=== PATIENT | female | born 1995 | race American Indian/Alaskan Native ===

== ENCOUNTER 2017-09-08 14:45 | Emergency (ER) | payer SELFPAY ==
[2017-09-08 15:28] LABS: Basophils % (Auto) 0.6 % (0.0-1.8); Eosinophils % (Auto) 0.3 % (0.0-4.3); Hemoglobin 14.9 gm/dl (10.1-14.3); Lymphocytes # (Auto) 2.4 K/mm3 (1.2-5.4); Lymphocytes % (Auto) 37.7 % (13.4-35.0); Mean Corpuscular HGB Conc 34 % (30-34); Mean Corpuscular Hemoglobin 30 pg (28-32); Mean Corpuscular Volume 89 fl (79-97); Monocytes # (Auto) 0.5 K/mm3 (0.0-0.8); Monocytes % (Auto) 8.3 % (0.0-7.3); Platelet Count 262 K/mm3 (140-440); Red Blood Count 4.96 M/mm3 (3.65-5.03); Red Cell Distribution Width 14.6 % (13.2-15.2)
[2017-09-08 15:30] LABS: BUN/Creatinine Ratio 11; Blood Urea Nitrogen 8 mg/dL (7-17); Calcium 8.7 mg/dL (8.4-10.2); Hemolysis Index 8
--- NOTE | 2017-09-08 16:58 | Emergency Department Report ---
ED Psych HPI - General Chief Complaint: Psych Stated Complaint: SUICIDAL THOUGHTS Time Seen by Provider: 09/08/17 16:17 Source: patient Mode of arrival: Ambulatory - History of Present Illness Initial Comments: Ms Longoria is a 22 year-old woman without PMH who presents after attempt at SI. Per patient, she has been depressed recently because she "has a lot going on." Would not elaborate further. Denies that she is being hurt or feels like she is in danger. Made a post on [employer] about possibly harming herself. She then took a phone user support analyst supervisor and wrapped it around her enck with her hands. Then she plugged it in and tried to hang herself. She then got into bed. Police came to the door and brought her here. No ingestion. no drugs. No alcohol. Upset that she is being forced to stay here. Reports previous attempt at SI. No cough, no cold, no fever, no CP, no dyspnea. no back pain. Normal PO. MD Complaint: suicidal ideation Associated Psychiatric Symptoms: depression, suicidal ideation If Self Harm: admits thoughts of, has plan, has acted on plan - Related Data Allergies Allergy/AdvReac Type Severity Reaction Status Date / Time No Known Allergies Allergy Unverified 09/08/17 14:56 ED Review of Systems ROS: Stated complaint: SUICIDAL THOUGHTS Other details as noted in HPI Comment: All other systems reviewed and negative ED Past Medical Hx - Past Medical History Previous Medical History?: No - Surgical History Past Surgical History?: No - Social History Smoking Status: Current Some Day Smoker Substance Use Type: Alcohol, Marijuana ED Physical Exam - General Limitations: No Limitations General appearance: alert, in no apparent distress - Head Head exam: Present: atraumatic, normocephalic - Eye Eye exam: Present: normal appearance. Absent: scleral icterus - ENT ENT exam: Present: normal exam, normal orophraynx, mucous membranes moist - Neck Neck exam: Present: normal inspection, full ROM, other (no swelling, no rash, no bruising, no abrasion, no bruit, no ttp, no stridor). Absent: tenderness, meningismus, lymphadenopathy - Respiratory Respiratory exam: Present: normal lung sounds bilaterally. Absent: respiratory distress, wheezes, rales, rhonchi - Cardiovascular Cardiovascular Exam: Present: regular rate, normal rhythm. Absent: systolic murmur, diastolic murmur, rubs, gallop - GI/Abdominal GI/Abdominal exam: Present: soft. Absent: distended, tenderness - Extremities Exam Extremities exam: Present: normal inspection - Back Exam Back exam: Present: normal inspection. Absent: tenderness - Neurological Exam Neurological exam: Present: alert, oriented X3 - Psychiatric Psychiatric exam: Present: normal affect, normal mood - Skin Skin exam: Present: warm, dry, intact, normal color. Absent: rash ED Course Vital Signs 09/08/17 09/08/17 15:10 16:53 Temperature 98.5 F Pulse Rate 59 L Respiratory 18 18 Rate Blood Pressure 104/55 [Left] O2 Sat by Pulse 99 98 Oximetry ED Medical Decision Making - Lab Data Result diagrams: 09/08/17 15:04 09/08/17 15:04 Lab Results 09/08/17 09/08/17 09/08/17 Range/Units 15:04 15:04 15:04 WBC (4.5-11.0) K/mm3 RBC (3.65-5.03) M/mm3 Hgb (10.1-14.3) gm/dl Hct (30.3-42.9) % MCV (79-97) fl MCH (28-32) pg MCHC (30-34) % RDW (13.2-15.2) % Plt Count (140-440) K/mm3 Lymph % (Auto) (13.4-35.0) % [place] % (Auto) (0.0-7.3) % Eos % (Auto) (0.0-4.3) % Baso % (Auto) (0.0-1.8) % Lymph # (1.2-5.4) K/mm3 [place] # (0.0-0.8) K/mm3 Eos # (0.0-0.4) K/mm3 Baso # (0.0-0.1) K/mm3 Seg Neutrophils % (40.0-70.0) % Seg Neutrophils # (1.8-7.7) K/mm3 Sodium 138 (137-145) mmol/L Potassium 4.1 (3.6-5.0) mmol/L Chloride 102.2 (98-107) mmol/L Carbon Dioxide 23 (22-30) mmol/L Anion Gap 17 mmol/L BUN 8 (7-17) mg/dL Creatinine 0.7 (0.7-1.2) mg/dL Estimated GFR > 60 ml/min BUN/Creatinine Ratio 11 % Glucose 82 (65-100) mg/dL Calcium 8.7 (8.4-10.2) mg/dL Salicylates < 0.3 L (2.8-20.0) mg/dL Acetaminophen < 5.0 L (10.0-30.0) ug/mL Plasma/Serum Alcohol (0-0.07) % 09/08/17 09/08/17 Range/Units 15:04 15:04 WBC 6.4 (4.5-11.0) K/mm3 RBC 4.96 (3.65-5.03) M/mm3 Hgb 14.9 H (10.1-14.3) gm/dl Hct 44.0 H (30.3-42.9) % MCV 89 (79-97) fl MCH 30 (28-32) pg MCHC 34 (30-34) % RDW 14.6 (13.2-15.2) % Plt Count 262 (140-440) K/mm3 Lymph % (Auto) 37.7 H (13.4-35.0) % [place] % (Auto) 8.3 H (0.0-7.3) % Eos % (Auto) 0.3 (0.0-4.3) % Baso % (Auto) 0.6 (0.0-1.8) % Lymph # 2.4 (1.2-5.4) K/mm3 [place] # 0.5 (0.0-0.8) K/mm3 Eos # 0.0 (0.0-0.4) K/mm3 Baso # 0.0 (0.0-0.1) K/mm3 Seg Neutrophils % 53.1 (40.0-70.0) % Seg Neutrophils # 3.4 (1.8-7.7) K/mm3 Sodium (137-145) mmol/L Potassium (3.6-5.0) mmol/L Chloride (98-107) mmol/L Carbon Dioxide (22-30) mmol/L Anion Gap mmol/L BUN (7-17) mg/dL Creatinine (0.7-1.2) mg/dL Estimated GFR ml/min BUN/Creatinine Ratio % Glucose (65-100) mg/dL Calcium (8.4-10.2) mg/dL Salicylates (2.8-20.0) mg/dL Acetaminophen (10.0-30.0) ug/mL Plasma/Serum Alcohol 0.03 (0-0.07) % - Medical Decision Making ms Longoria is a 22 year-old woman who presents after reported suicide attempt. No evidence of strangulation on exam. No symptoms of neck injury/strangulation. Medically cleared for psychiatric evaluation. Awaiting urine. if urine result is abnormal, will be noted in addendum. Awaiting evaluation. 1013 signed and in chart. Critical care attestation.: If time is entered above; I have spent that time in minutes in the direct care of this critically ill patient, excluding procedure time. ED Disposition Clinical Impression: Suicidal ideation Disposition: [id number]/TX-65 PSY HOSP/PSY UNIT Is pt being admited?: No Does the pt Need Aspirin: No Condition: Stable Referrals: PRIMARY CARE, [Primary Care Provider] - 3-5 Days
[2017-09-08 19:59] LABS: Bilirubin,Urine NEG (Negative); Blood,Urine NEG (Negative); Color,Urine Yellow (Yellow); Mucus,Urine 3+ /HPF
[2017-09-08 20:03] LABS: Amphetamine Screen,Urine PRESUMPTIVE NEGATIVE; Benzodiazepines Screen,Urine PRESUMPTIVE NEGATIVE; Cocaine Screen,Urine PRESUMPTIVE NEGATIVE; Methadone Screen,Urine PRESUMPTIVE NEGATIVE; Opiate Screen,Urine PRESUMPTIVE NEGATIVE
[2017-09-08 20:17] LABS: Cannabinoid Screen,Urine PRESUMPTIVE POSITIVE
--- NOTE | 2017-09-09 14:17 | Consultation ---
History of Present Illness - Reason for Consult Consult date: 09/09/17 Reason for consult: [facility] Evaluation Requesting physician: ELIO TAVAREZ - Chief Complaint Chief complaint: "I was stressed out" - History of Present Psychiatric Illness 22 year-old AA female without PMH who presents to the ER for SI and a suicide attempt. Today the patient is calm during the assessment. She admitted to wrapping a phone attendance officer cord around her neck to kill herself. Also, she admitted to posting "something" on facebook about wanting to harm herself. She stated that all her problems come from her not knowing her biological parents. She stated several years of depression (feeling hopeless and helpless), because she has questions with no answers about where she come from. She stated that she was adopted when she was an infant. She stated that she do not have an relationship with her mother to have a discussion about her biological parents. She stated that she is "okay" and should be discharged. She stated that she prefer therapy instead of taking medication. She denies SI/HI's and AVH's. She denies any manic episodes in the past. She denies erratic sleep and a poor appetite. She admitted to smoking marijuana, but denies alcohol consumption ( etoh). Medications and Allergies Allergies Allergy/AdvReac Type Severity Reaction Status Date / Time No Known Allergies Allergy Unverified 09/08/17 14:56 Past psychiatric history - Past Medical History Past Medical History: No medical history Past Surgical History: No surgical history - past Psychiatric treatment and history psychiatric treatment history: Denies a psy hx and a fam psy hx. - Social History Social history: lives with family Mental Status Exam - Vital signs Last Vital Signs Temp 98.0 F 09/08/17 20:49 Pulse 54 L 09/08/17 20:49 Resp 18 09/09/17 10:32 BP 100/55 09/08/17 20:49 Pulse Ox 98 09/09/17 10:32 - Exam Narrative exam: MSE: Appearance: calm Behavior: regular eye contact Speech: regular rate and tone Mood: "okay" withdrawn Affect: congruent to mood Thought Process: circumstantial Thought Content: denies SI/HI's and AVH's Motor Activity: ambulatory Cognition: A/O x 3 Insight: variable Judgment: variable Results Result Diagrams: 09/08/17 15:04 09/08/17 15:04 Abnormal lab results 09/08/17 09/08/17 09/08/17 Range/Units 15:04 15:04 15:04 Hgb 14.9 H (10.1-14.3) gm/dl Hct 44.0 H (30.3-42.9) % Lymph % (Auto) 37.7 H (13.4-35.0) % [place] % (Auto) 8.3 H (0.0-7.3) % Salicylates < 0.3 L (2.8-20.0) mg/dL Acetaminophen < 5.0 L (10.0-30.0) ug/mL All other labs normal. Assessment and Plan Assessment and plan: Impression: MDD, Severe Type. Cannabis Use DO. Today the patient is calm during the assessment. The patient wrapped a phone cord around her neck to kill herself. DDx: R/O Bipolar DO, R/O Substance Induced Mood DO Recommendation/Plan: Continue 1013 with placement to inpatient psy services. Risk/Benefits discussed with patient reference antidepressants. The patient prefer therapy at this time instead of taking medication.
[2017-09-10 07:02] LABS: HCG Qualitative,Urine Negative (Negative)
--- NOTE | 2017-09-10 15:29 | Progress Note ---
Subjective - Reason for Consult Consult date: 09/10/17 Reason for consult: Psychiatric Follow-up Evaluation - Chief Complaint Chief complaint: "I feel fine." Patient is a 22 year-old female without PMH who presents to the emergency room after a suicide attempt. She admitted to wrapping a phone comb fixer cord around her neck to kill herself. Today the patient is calm and cooperative during the assessment. She denies SI/HI, A/VH, and delusions. She continues to endorses depressed mood. She refuses medication. Mental Status Exam - Vital signs Last Vital Signs Temp 98.1 F 09/10/17 12:00 Pulse 86 09/10/17 12:00 Resp 18 09/10/17 12:00 BP 105/63 09/10/17 12:00 Pulse Ox 98 09/10/17 12:00 - Exam Narrative exam: Mental Status Exam General Appearance: Causally Dressed-hospital gown Eye Contact: Intermittent Orientation: Alert and oriented x 4 ( person, place, time, and situation) Attitude/Behavior: Cooperative Sensorium: Clear Psychomotor & Musculoskeletal Activity: WNL Mood: "Relaxed" Affect: Constricted Speech/Language: Normal rate and tone Thought Processes: Organized Thought Content: WNL- None elicited; patient denies delusions. Perception: WNL-patient denies Concentration/Attention: Impaired attention Suicidal Ideations/Plan: Patient denies Homicidal Ideations/Plan: Patient denies Judgment: Variable Insight: Variable Assessment and Plan Impression: MDD, Severe Type. Cannabis Use DO. Today the patient is calm during the assessment. The patient wrapped a phone cord around her neck to kill herself. DDx: R/O Bipolar DO, R/O Substance Induced Mood DO Recommendation/Plan: 1. Continue 1013 with placement to inpatient psy services. 2. Risk/Benefits discussed with patient reference antidepressants. 3. The patient prefer therapy at this time instead of taking medication.
[2017-09-11 21:38] VITALS: BP 114/69
== END 2017-09-12 03:51 ==
LOC: EEVIPCON 14:45 → ED 14:45
DX: R45.851 Suicidal ideations (principal); F32.9 Major depressive disorder, single episode, unspecified
CPT/HCPCS: 36415; 80048; 80307; 81001; 81025; 85025; 99284; G0480; 80320